=== PATIENT | male | born 1965 | race African-American/Black ===

== ENCOUNTER → 2017-02-13 | Outpatient (CLI) | payer OTHER ==
[2017-02-13 10:11] LABS: eGFR (African) > 60; eGFR (Non-African) > 60
[2017-02-13 21:10] LABS: BASO % 0.6 % (0.0-1.5); EOS % 2.5 % (0.0-6.8); LYMPH ABS # 1.61 thou/uL (0.60-4.00); MCH. 34.3 pg (28.0-34.0); MCV 101.5 fL (80.0-100.0); MONOCYTE % 10.2 % (0.0-11.0); MONOCYTE ABS # 0.32 thou/uL (0.00-0.90); PLATELET COUNT 195 thou/uL (130-400)
== END ==
LOC: LAB 09:12
PROVIDERS: ATTEND Family Medicine
DX: E78.00 Pure hypercholesterolemia, unspecified (principal); Z51.81 Encounter for therapeutic drug level monitoring
CPT/HCPCS: 36415; 80053; 80061; 85025

== ENCOUNTER 2017-05-21 08:21 | Day surgery (SDC) | payer OTHER ==
[~2017-05-21 08:21] MED LIST: LACTATED RINGERS 1,000 ML IV.SOLN IV ONE; LIDOCAINE 1%/EPINEPHRINE 20ML VIAL IJ ONE; MIDAZOLAM HCL 2 MG/2 ML VIAL ONE; PROPOFOL 500 MG/50 ML VIAL IV ONE; SALINE FLUSH 10 ML DISP.SYRIN IVF ONE
--- NOTE | 2017-05-22 13:51 | Operative Note ---
SURGEON: Ravin Rae MD ANESTHESIA: MAC anesthesia with local. ESTIMATED BLOOD LOSS: Less than 5 mL. COMPLICATIONS: None. PREOPERATIVE DIAGNOSIS: Rectal abscess POSTOPERATIVE DIAGNOSIS: Rectal abscess. PROCEDURE PERFORMED: Examination under anesthesia with incision and drainage of rectal abscess. INDICATIONS FOR PROCEDURE: This is a 51-year-old man who was noted to have an induration and swelling next to his anus. He was brought to the operating room for an examination under anesthesia with possible incision and drainage (I & D). DESCRIPTION OF PROCEDURE: Patient was brought to the operating room after MAC anesthesia was administered and he was placed in the lithotomy position. He was noted to have a right anterior abscess. Local anesthesia was injected. An incision was made sharply. He had some purulence inside of a large cavity. There was some surrounding induration. There was really no erythema. This did not appear to extend to the rectum. This appeared to be a skin lesion. Assurance was made that the cavity was drained. Packing was placed and a dressing was placed. The patient was placed supine and awakened in the operating room. He was not extubated and he was not intubated. He was brought to the recovery room in good condition. FINDINGS: Right anterior abscess. cc: Dr. Cash ARROYO
== END 2017-05-21 08:22 ==
LOC: OUT 08:21 → EDSTATUS 10:30
PROVIDERS: ATTEND Colon & Rectal Surgery
DX: K61.1 Rectal abscess (principal)
CPT/HCPCS: 46040; 87070; 87186; J2250; J2704; J7030; J7120; S1016

== ENCOUNTER 2017-06-04 09:27 | Outpatient (CLI) | payer OTHER | END 2017-06-04 09:30 | LOC: OUT 09:27 | PROVIDERS: ATTEND Colon & Rectal Surgery | DX: Z09 Encounter for follow-up examination after completed treatment for conditions other than malignant neoplasm (principal); K61.1 Rectal abscess | CPT/HCPCS: 99213 ==